=== PATIENT | female | born 1985 | race Caucasian/White ===

== ENCOUNTER 2017-11-27 02:37 | Emergency (ER) | payer MEDICAID ==
[~2017-11-27] VITALS: Ht 170.2 cm; Wt 81.7 kg
[~2017-11-27 02:37] MED LIST: BACTRIM DS TAB1 EACH PO; CILOXAN5 ML OP; CIPROFLOXACIN500 M1 PO; DIFLUCAN150 MG PO; ERYTHROMYCIN E3.5 G1 OPHTHALMIC; HYDROCODON-ACE1 EAC7 PO; IBUPROFEN 800800 M1 PO; KEFLEX500 MG PO; PREDNISONE 10 M10 MG PO; PREDNISONE 20 M20 M1 PO; PRENATAL; PROZAC20 MG; SARNA ANTI-ITC222 ML TP; TOBRAMYCIN SULFA5 ML OPHTHALMIC; TRAMADOL 50 MG50 MG PO; ULTRAM 50MG TAB50 MG PO; VENTOLIN HFA 1818 GM INH; WELLBUTRIN 75 M75 M1 PO; ZOFRAN4 MG PO; ZPAK PO
[2017-11-27] MEDS ORDERED: CLEOCIN HCL150 MG PO (03:01)
[2017-11-27] MEDS ORDERED: BACTROBAN CREAM30 G1 TOP (03:01)
== END 2017-11-27 03:07 | disposition home or self-care (01) ==
LOC: M.ERS 02:37
DX: L02.01 Cutaneous abscess of face (principal); F17.210 Nicotine dependence, cigarettes, uncomplicated; Z90.49 Acquired absence of other specified parts of digestive tract; Z98.890 Other specified postprocedural states

== ENCOUNTER 2018-05-15 18:47 | Emergency (ER) | payer OTHER, MEDICAID ==
[~2018-05-15] VITALS: Ht 170.2 cm; Wt 81.7 kg
[~2018-05-15 18:47] MED LIST changes: +BACTROBAN CREAM30 G1 TOP; +CLEOCIN HCL150 MG PO
[2018-05-15] MEDS ORDERED: IBUPROFEN 800800 M1 PO (19:36)
[2018-05-15 19:54] VITALS: BP 132/59
== END 2018-05-15 19:54 | disposition home or self-care (01) ==
LOC: M.ERS 18:47
DX: M25.572 Pain in left ankle and joints of left foot (principal); F17.210 Nicotine dependence, cigarettes, uncomplicated; Z90.49 Acquired absence of other specified parts of digestive tract; Z98.890 Other specified postprocedural states

== ENCOUNTER 2018-05-24 22:11 | Emergency (ER) | payer OTHER, MEDICAID ==
[~2018-05-24] VITALS: Ht 170.2 cm; Wt 81.7 kg
[2018-05-24 22:19] VITALS: BP 126/65
== END 2018-05-24 23:03 | disposition home or self-care (01) ==
LOC: M.ERS 22:11
DX: L25.9 Unspecified contact dermatitis, unspecified cause (principal); F17.210 Nicotine dependence, cigarettes, uncomplicated; Z90.49 Acquired absence of other specified parts of digestive tract; Z98.890 Other specified postprocedural states

== ENCOUNTER 2018-05-26 18:00 | Emergency (ER) | payer MEDICAID ==
[~2018-05-26] VITALS: Ht 170.2 cm; Wt 81.7 kg
[2018-05-26 18:14] VITALS: BP 108/72
[2018-05-26] MEDS ORDERED: MEDROLDOSEPACK PO (18:16)
== END 2018-05-26 18:23 | disposition home or self-care (01) ==
LOC: M.ERS 18:00
DX: L30.9 Dermatitis, unspecified (principal); F17.210 Nicotine dependence, cigarettes, uncomplicated; Z90.49 Acquired absence of other specified parts of digestive tract; Z98.890 Other specified postprocedural states

== ENCOUNTER 2018-07-14 19:04 | Emergency (ER) | payer MEDICAID ==
[~2018-07-14] VITALS: Ht 170.2 cm; Wt 81.7 kg
[~2018-07-14 19:04] MED LIST changes: +MEDROLDOSEPACK PO
[2018-07-14 19:27] LABS: URINE BILIRUBIN NEGATIVE (Negative); URINE BLOOD 2+ (Negative); URINE CLARITY CLOUDY; URINE COLOR YELLOW; URINE GLUCOSE-RANDOM NEGATIVE (Negative); URINE KETONES NEGATIVE (Negative); URINE PROTEIN 1+ (Negative); URINE SPECIFIC GRAVITY >= 1.030 (1.005-1.030); URINE UROBILINOGEN 0.2 E.U./dl (0.2-1.0)
[2018-07-14 19:29] LABS: URINE LEUKOCYTES-REFLEX 2+ (Negative); URINE NITRITE-REFLEX POSITIVE (Negative)
[2018-07-14 19:33] LABS: AMP/METHAMP POSITIVE (Negative); BARBITURATES Negative (Negative); BENZODIAZEPINES Negative (Negative); COCAINE Negative (Negative); METHADONE Negative (Negative); OPIATES Negative (Negative); PCP Negative (Negative); THC Negative (Negative)
[2018-07-14 19:40] LABS: CASTS None Seen /LPF (None Seen); CRYSTALS None Seen /LPF (None Seen); SQUAMOUS 0-3 Few /LPF (0-3); URINE RBC 0-2 Rare /HPF (0-2); URINE WBC-REFLEX >25 Many /HPF (0-5)
[2018-07-14] MEDS ORDERED: KEFLEX500 M1 PO (20:50)
[2018-07-14 21:10] VITALS: BP 120/78
== END 2018-07-14 21:10 | disposition home or self-care (01) ==
LOC: M.ERS 19:04
PROVIDERS: Personal Emergency Response Attendant
DX: N39.0 Urinary tract infection, site not specified (principal); K59.00 Constipation, unspecified; F17.210 Nicotine dependence, cigarettes, uncomplicated; Z90.49 Acquired absence of other specified parts of digestive tract; Z98.890 Other specified postprocedural states; Z79.899 Other long term (current) drug therapy

== ENCOUNTER 2018-10-10 23:13 | Emergency (ER) | payer OTHER, MEDICAID ==
[~2018-10-10] VITALS: Ht 170.2 cm; Wt 81.7 kg
[~2018-10-10 23:13] MED LIST changes: +KEFLEX500 M1 PO
[2018-10-10 23:23] VITALS: BP 116/72
[2018-10-10] MEDS ORDERED: PREDNISONE 20 M20 M1 PO (23:34)
== END 2018-10-10 23:58 | disposition home or self-care (01) ==
LOC: M.ERS 23:13
DX: L25.9 Unspecified contact dermatitis, unspecified cause (principal); F17.210 Nicotine dependence, cigarettes, uncomplicated; Z88.6 Allergy status to analgesic agent; Z88.8 Allergy status to other drugs, medicaments and biological substances; Z90.49 Acquired absence of other specified parts of digestive tract; Z98.890 Other specified postprocedural states

== ENCOUNTER 2019-02-09 21:45 | Emergency (ER) | payer OTHER, MEDICAID ==
[~2019-02-09] VITALS: Ht 170.2 cm; Wt 81.7 kg
[2019-02-09 23:50] VITALS: BP 0/0
== END 2019-02-09 23:25 | disposition left against medical advice (07) ==
LOC: M.ERS 21:45
DX: R21 Rash and other nonspecific skin eruption (principal); F17.210 Nicotine dependence, cigarettes, uncomplicated; Z90.49 Acquired absence of other specified parts of digestive tract; Z98.890 Other specified postprocedural states; Z98.51 Tubal ligation status; Z88.6 Allergy status to analgesic agent; Z88.5 Allergy status to narcotic agent

== ENCOUNTER 2019-02-11 00:57 | Emergency (ER) | payer OTHER, MEDICAID ==
[~2019-02-11] VITALS: Ht 170.2 cm; Wt 81.7 kg
[2019-02-11 00:59] VITALS: BP 117/68
[2019-02-11] MEDS ORDERED: VANOS60 GM TOP (01:16)
[2019-02-11] MEDS ORDERED: PREDNISONE 10 M10 M1 PO (01:16)
== END 2019-02-11 01:33 | disposition home or self-care (01) ==
LOC: M.ERS 00:57
DX: L25.5 Unspecified contact dermatitis due to plants, except food (principal); F17.210 Nicotine dependence, cigarettes, uncomplicated; Z88.5 Allergy status to narcotic agent; Z88.6 Allergy status to analgesic agent; Z90.49 Acquired absence of other specified parts of digestive tract; Z98.51 Tubal ligation status

== ENCOUNTER 2020-11-14 16:02 | Emergency (ER) | payer OTHER ==
[~2020-11-14] VITALS: Ht 170.2 cm; Wt 90.7 kg
[~2020-11-14 16:02] MED LIST changes: +PREDNISONE 10 M10 M1 PO; +VANOS60 GM TOP
[2020-11-14 16:22] LABS: URINE BILIRUBIN NEGATIVE (Negative); URINE BLOOD NEGATIVE (Negative); URINE CLARITY CLEAR; URINE COLOR YELLOW; URINE GLUCOSE-RANDOM NEGATIVE (Negative); URINE KETONES NEGATIVE (Negative); URINE LEUKOCYTES-REFLEX NEGATIVE (Negative); URINE NITRITE-REFLEX NEGATIVE (Negative); URINE PROTEIN NEGATIVE (Negative); URINE SPECIFIC GRAVITY >= 1.030 (1.005-1.030); URINE UROBILINOGEN 0.2 E.U./dl (0.2-1.0)
[2020-11-14] MEDS ORDERED: NAPROSYN500 MG PO (16:38)
[2020-11-14 16:45] VITALS: BP 125/58
[2020-11-18] MEDS ORDERED: VIBRAMYCIN 100100 MG PO (15:16)
== END 2020-11-14 16:49 | disposition home or self-care (01) ==
LOC: M.ERS 16:02
PROVIDERS: Physician Assistant
DX: N94.6 Dysmenorrhea, unspecified (principal); F17.210 Nicotine dependence, cigarettes, uncomplicated; Z90.49 Acquired absence of other specified parts of digestive tract; Z98.51 Tubal ligation status; Z98.890 Other specified postprocedural states

== ENCOUNTER 2020-11-15 22:47 | Emergency (ER) | payer OTHER ==
[~2020-11-15] VITALS: Ht 170.2 cm; Wt 90.7 kg
[~2020-11-15 22:47] MED LIST changes: +NAPROSYN500 MG PO
[2020-11-15 23:34] VITALS: BP 106/64
[2020-11-16] MEDS ORDERED: BACTRIM DS TAB1 EACH PO ×2 (07:21)
== END 2020-11-15 23:34 | disposition left against medical advice (07) ==
LOC: M.ERS 22:47
DX: Z53.21 Procedure and treatment not carried out due to patient leaving prior to being seen by health care provider (principal)

== ENCOUNTER 2020-11-16 05:50 | Emergency (ER) | payer OTHER ==
[~2020-11-16] VITALS: Ht 170.2 cm; Wt 90.7 kg
[2020-11-16] MEDS ORDERED: BACTRIM DS TAB1 EACH PO (07:21)
[2020-11-16 07:51] VITALS: BP 111/56
[2020-11-18] MEDS ORDERED: VIBRAMYCIN 100100 MG PO (15:16)
== END 2020-11-16 07:53 | disposition home or self-care (01) ==
LOC: M.ERS 05:50
DX: L03.114 Cellulitis of left upper limb (principal); F17.210 Nicotine dependence, cigarettes, uncomplicated; Z90.49 Acquired absence of other specified parts of digestive tract; Z98.51 Tubal ligation status; Z98.890 Other specified postprocedural states; W57.XXXA Bitten or stung by nonvenomous insect and other nonvenomous arthropods, initial encounter; Y93.89 Activity, other specified; Y92.89 Other specified places as the place of occurrence of the external cause; Y99.8 Other external cause status

== ENCOUNTER 2020-11-17 12:39 | Observation (INO) | payer OTHER ==
[~2020-11-17] VITALS: Ht 170.2 cm; Wt 98.9 kg
[2020-11-17 12:46] VITALS: BP 117/67
[2020-11-17 14:00] LABS: ABSOLUTE BASOPHILS 0.1 thou/uL (0.0-0.2); ABSOLUTE EOSINOPHILS 0.1 thou/uL (0.0-0.7); ABSOLUTE LYMPHOCYTES 2.4 thou/uL (0.8-5.3); ABSOLUTE MONOCYTES 1.1 thou/uL (0.0-1.2); ABSOLUTE NEUTROPHILS 7.7 thou/uL (1.6-8.1); BASOPHILS 1.2 %; HEMATOCRIT 32.1 % (37.0-47.0); HEMOGLOBIN 10.4 gm/dL (12.0-15.0); LYMPHOCYTES 20.9 %; MCH 27.2 pg (26.0-34.0); MCHC 32.3 g/dL (28.0-37.0); MONOCYTES 9.3 %; MPV 7.4 fl. (7.2-11.1); NUCLEATED RBCS 0 /100WBC; PLATELET COUNT* 339 thou/uL (150-400); POLYS 67.6 %; RBC 3.82 mil/uL (4.20-5.00); RDW-CV 16.6 % (10.5-14.5); WBC 11.5 thou/uL (4.0-11.0)
[2020-11-17 14:10] LABS: APTT 24.1 Seconds (25.0-31.3); PROTIME 10.3 Seconds (9.20-11.50)
[2020-11-17 14:19] LABS: CALCIUM 8.8 mg/dL (8.5-10.1); CREATININE 0.8 mg/dL (0.6-1.3)
[2020-11-17 14:25] LABS: ALBUMIN 3.7 g/dL (3.4-5.0); TOTAL BILIRUBIN 0.1 mg/dL (<0.1-1.0); TOTAL PROTEIN 7.1 g/dL (6.4-8.2)
[2020-11-17 16:21] VITALS: BP 100/60
[2020-11-17 16:40] VITALS: BP 97/48
[2020-11-17 19:40] VITALS: BP 99/49
[2020-11-18] VITALS: BP 105/45
[2020-11-18 04:33] LABS: ABSOLUTE BASOPHILS 0.1 thou/uL (0.0-0.2); ABSOLUTE EOSINOPHILS 0.2 thou/uL (0.0-0.7); ABSOLUTE MONOCYTES 0.6 thou/uL (0.0-1.2); ABSOLUTE NEUTROPHILS 4.5 thou/uL (1.6-8.1); BASOPHILS 0.9 %; EOSINOPHILS 2.4 %; HEMATOCRIT 26.6 % (37.0-47.0); HEMOGLOBIN 8.8 gm/dL (12.0-15.0); LYMPHOCYTES 27.3 %; MCH 27.9 pg (26.0-34.0); MCHC 33.2 g/dL (28.0-37.0); MONOCYTES 8.3 %; MPV 7.8 fl. (7.2-11.1); NUCLEATED RBCS 0 /100WBC; PLATELET COUNT* 269 thou/uL (150-400); POLYS 61.1 %; RBC 3.17 mil/uL (4.20-5.00); RDW-CV 17.1 % (10.5-14.5); WBC 7.4 thou/uL (4.0-11.0)
[2020-11-18 04:44] LABS: CALCIUM 7.8 mg/dL (8.5-10.1); CREATININE 0.8 mg/dL (0.6-1.3); POTASSIUM 4.1 mmol/L (3.5-5.1)
[2020-11-18 08:20] VITALS: BP 110/64
[2020-11-18 14:38] VITALS: BP 110/64
[2020-11-18] MEDS ORDERED: VIBRAMYCIN 100100 MG PO ×2 (15:16)
[2020-11-18 16:14] VITALS: BP 110/64
== END 2020-11-18 16:05 | disposition home or self-care (01) ==
LOC: M.ERS 12:39 → M.ORTHSURG 13:53 → M.TBA-ER 13:53 → M.ORTHSURG 16:32
PROVIDERS: Family Medicine; ADMIT Internal Medicine; ATTEND Internal Medicine
DX: L03.116 Cellulitis of left lower limb (principal); R65.10 Systemic inflammatory response syndrome (SIRS) of non-infectious origin without acute organ dysfunction; Z20.822 Contact with and (suspected) exposure to COVID-19; R52 Pain, unspecified; F17.200 Nicotine dependence, unspecified, uncomplicated